=== PATIENT | male | born 1965 | race African-American/Black ===

== ENCOUNTER 2017-06-17 00:16 | Emergency (ER) | payer BC ==
[2017-06-17 01:09] LABS: #Eosinphils 0.1 thou/uL (0.0-0.7); #Lymphocytes 1.8 thou/uL (1.20-3.40); #Monocytes 0.3 thou/uL (0.11-0.59); #Neutrophils 1.7 thou/uL (1.40-6.50); %Basophils 0.7 % (0.0-1.0); %Eosinophils 2.3 % (0.0-10.0); %Lymphocytes 46.2 % (21.0-51.0); %Monocytes 6.9 % (0.0-10.0); %Neutrophils 43.9 % (42.0-75.0); Mean Corpuscular HGB CONC 35.1 g/dL (32.0-36.0); Mean Corpuscular Hemoglobin 29.3 pg (27.0-31.0); Mean Corpuscular Volume 83.3 fl (80.0-94.0); Mean Platelet Volume 6.7 fL (7.4-10.4); Platelet Count 249 thou/uL (130-400); RBC Distribution Width 13.9 % (11.5-14.5); Red Blood Cell (RBC) Count 4.78 mill/uL (4.70-6.10)
[2017-06-17 01:27] LABS: ALT (SGPT) 28 U/L (8-55); AST (SGOT) 17 U/L (5-34); Albumin 3.4 g/dL (3.5-5.0); Alkaline Phosphatase 54 U/L (40-150); Anion Gap 11 mmol/L (10-20); BUN (Urea Nitrogen) 15 mg/dL (8.4-25.7); Bilirubin, Total 0.3 mg/dL (0.2-1.2); Calc. Creatinine Clearance 0 mL/min (70-130); Calcium 8.9 mg/dL (7.8-10.44); Carbon Dioxide 22 mmol/L (22-29); Chloride 107 mmol/L (98-107); Estimated GFR-MDRD 45; Globulin 2.7 g/dL (2.4-3.5); Glucose 312 mg/dL (70-105); Potassium 3.7 mmol/L (3.5-5.1); Protein, Total 6.1 g/dL (6.0-8.3); Sodium 136 mmol/L (136-145)
[2017-06-17 01:30] LABS: CKMB 4.5 ng/mL (0-6.6); Troponin I Less than 0.010 ng/mL (< 0.028)
[2017-06-17] MEDS ORDERED: Dexamethasone 10 MG/ML VIAL ONE (02:44)
[2017-06-17] MEDS ORDERED: Ketorolac Tromethamine 30 MG/ML VIAL ONE (02:44)
--- NOTE | 2017-06-17 08:14 | RAD ---
AP VIEW CHEST: HISTORY: Chest pain. FINDINGS: AP view chest is obtained on 06/17/17. Comparison study is not available. AP view chest demonstrates the lungs to be well aerated. No evidence of active intrathoracic disease is seen. No evidence of effusions, pneumonia, or pneumothorax seen. IMPRESSION: Unremarkable AP view chest. POS: [facility]
--- NOTE | 2017-07-29 | EKG ---
Test Reason : CHEST PAIN Blood Pressure : / mmHG Vent. Rate : 081 BPM Atrial Rate : 081 BPM P-R Int : 142 ms QRS Dur : 082 ms QT Int : 400 ms P-R-T Axes : 073 -02 093 degrees QTc Int : 464 ms Normal sinus rhythm Nonspecific T wave abnormality Prolonged QT Abnormal ECG Confirmed by SHAYY TRAORE ([id number]), staff editor FERNANDEZ DOMINGUEZ ([id number] on 07/28/2017 11:59:42 PM Referred By: Confirmed By:SHAYY TRAORE
== END 2017-06-17 03:35 | disposition home or self-care (01) ==
LOC: ERS 00:16
DX: M54.5 Low back pain (principal); R10.9 Unspecified abdominal pain; I10 Essential (primary) hypertension; E11.9 Type 2 diabetes mellitus without complications
CPT/HCPCS: 71045; 80053; 82553; 84484; 85025; 93005; 94760; J1100; J1885

== ENCOUNTER 2017-06-17 15:58 | Inpatient (IN) | payer BC ==
[2017-06-17 16:22] LABS: #Lymphocytes 1.3 thou/uL (1.20-3.40); #Monocytes 0.2 thou/uL (0.11-0.59); #Neutrophils 4.8 thou/uL (1.40-6.50); %Basophils 0.2 % (0.0-1.0); %Eosinophils 0.2 % (0.0-10.0); %Lymphocytes 19.7 % (21.0-51.0); %Monocytes 3.7 % (0.0-10.0); %Neutrophils 76.2 % (42.0-75.0); Hemoglobin 13.8 g/dL (14.0-18.0); Mean Corpuscular HGB CONC 35.6 g/dL (32.0-36.0); Mean Corpuscular Hemoglobin 29.4 pg (27.0-31.0); Mean Corpuscular Volume 82.4 fl (80.0-94.0); Mean Platelet Volume 6.6 fL (7.4-10.4); Platelet Count 262 thou/uL (130-400); RBC Distribution Width 13.6 % (11.5-14.5); Red Blood Cell (RBC) Count 4.71 mill/uL (4.70-6.10); White Blood Cell (WBC) Count 6.3 thou/uL (4.8-10.8)
[2017-06-17] MEDS ORDERED: Lorazepam 2 MG/ML VIAL ONE (16:27)
[2017-06-17] MEDS ORDERED: Insulin Regular 300 UNITS/3 ML VIAL ONE (16:35)
[2017-06-17] MEDS ORDERED: Insulin Regular 100 units/100 ml in NS IVPB ONE (16:45)
[2017-06-17 16:48] LABS: ALT (SGPT) 31 U/L (8-55); AST (SGOT) 19 U/L (5-34); Albumin 3.6 g/dL (3.5-5.0); Alkaline Phosphatase 59 U/L (40-150); Anion Gap 21 mmol/L (10-20); BUN (Urea Nitrogen) 26 mg/dL (8.4-25.7); Bilirubin, Total 0.2 mg/dL (0.2-1.2); Calc. Creatinine Clearance 0 mL/min (70-130); Calcium 8.7 mg/dL (7.8-10.44); Carbon Dioxide 15 mmol/L (22-29); Chloride 101 mmol/L (98-107); Estimated GFR-MDRD 34; Globulin 2.9 g/dL (2.4-3.5); Glucose 676 mg/dL (70-105); Potassium 4.3 mmol/L (3.5-5.1); Protein, Total 6.5 g/dL (6.0-8.3); Sodium 133 mmol/L (136-145)
[2017-06-17 18:00] LABS: Bilirubin Negative (Negative); Blood, Urine Small (Negative); Clarity CLEAR (Clear); Glucose, Urine (Dipstick) >=1000 mg/dL (Negative); Leukocyte Negative (Negative); Nitrite Negative (Negative); Protein, Urine (Dipstick) 300 mg/dL (Neg-Trace); Urobilinogen 0.2 mg/dL (0.2-1.0)
[2017-06-17 18:01] LABS: Bacteria/HPF None Seen HPF (None Seen); Hyaline Casts/LPF 0-3 HYALINE CAST LPF (0-3 Hyaline); Pathc Cast-AUWi Flag 0.58 (0-2.49); RBC/HPF 0-3 HPF (0-3); Squamous Epithelial 0-3 HPF (0-3); WBC/HPF 0-3 HPF (0-3)
[2017-06-17 18:08] LABS: Amphetamine Not Detected (NotDetected); Barbiturates Screen Not Detected (NotDetected); Benzodiazepine Screen Not Detected (NotDetected); Cocaine Metabolite Screen Not Detected (NotDetected); Medtox Control Line Valid? VALID (VALID); Medtox Reader # READER 1; Methadone Not Detected (NotDetected); Methamphetamine Not Detected (NotDetected); Opiate Screen Not Detected (NotDetected); Oxycodone Screen Not Detected (NotDetected); Phencyclidine (PCP) Not Detected (NotDetected); THC/Cannabinoid Screen Not Detected (NotDetected); Tricyclic Screen Not Detected (NotDetected)
--- NOTE | 2017-06-17 18:09 | CT ---
CT BRAIN WITHOUT CONTRAST: Comparison: None. History: New onset seizures. Technique: Multiple contiguous axial images were obtained in a CT of the brain without contrast. FINDINGS: There are scattered hypodensities in the subcortical and periventricular white matter, likely seconda ry to small vessel ischemic disease. No large confluent infarction is seen. There is no evidence of h ydrocephalus, intracranial hemorrhage, or extraaxial fluid collection. The calvarium and overlying soft tissues are unremarkable. The visualized paranasal sinuses and masto id air cells are well aerated. IMPRESSION: No evidence of acute intracranial abnormality. POS: [facility]
[2017-06-17 18:23] VITALS: BMI 28.1
[2017-06-17] MEDS ORDERED: Lorazepam 2 MG/ML VIAL SLOW IVP PRN ×2 (18:27→18:29)
[2017-06-17] MEDS ORDERED: CCU Electrolyte Replacement 1 EACH IVPB ONE (18:29)
[2017-06-17] MEDS ORDERED: Ondansetron ODT 4 MG TAB SL PRN (18:29)
[2017-06-17] MEDS ORDERED: Sodium Chloride 0.9% 1,000 ML IV SCH (18:29)
[2017-06-17] MEDS ORDERED: Acetaminophen 325 MG TAB PO PRN (18:29)
[2017-06-17] MEDS ORDERED: Sodium Chloride 0.9% 1,000 ML IV PRN ×4 (18:29)
[2017-06-17] MEDS ORDERED: NS 0.9% w/ 20 MEQ KCL 1,000 ML IV PRN (18:29)
[2017-06-17] MEDS ORDERED: Dextrose 5 %-0.45 % NaCl 1,000 ML IV PRN (18:29)
[2017-06-17] MEDS ORDERED: D5 1/2 NS w/20 mEq KCL 1,000 ML IV PRN (18:29)
[2017-06-17] MEDS ORDERED: Ondansetron HCl/PF 4 MG/2 ML Vial IVP PRN (18:29)
[2017-06-17] MEDS ORDERED: Magnesium Oxide 400 MG TAB PO PRN ×2 (18:37)
[2017-06-17] MEDS ORDERED: Potassium Chloride 20 MEQ TAB PO PRN (18:37)
[2017-06-17] MEDS ORDERED: Magnesium 2 GM/NS 0.9% 100 ML 2 GM in Premix Bag 1 BAG IVPB PRN (18:37)
[2017-06-17] MEDS ORDERED: Potassium Phosphate 9 MMOL in Sodium Chloride 0.9% 100 ML IVPB PRN (18:37)
[2017-06-17] MEDS ORDERED: CCU ELECTROLYTE REPLACEMENT PROTOCOL FS PRN (18:37)
[2017-06-17] MEDS ORDERED: Potassium Phosphate 15 MMOL in Sodium Chloride 0.9% 250 ML 250 ML IV PRN (18:37)
[2017-06-17] MEDS ORDERED: Potassium Phosphate 12 MMOL in Sodium Chloride 0.9% 250 ML 250 ML IV PRN (18:37)
[2017-06-17] MEDS ORDERED: Potassium Chloride 40 MEQ in Premix Bag 1 BAG IVPB PRN (18:37)
[2017-06-17] MEDS ORDERED: Potassium Chloride 40 MEQ in Sodium Chloride 0.9% 250 ML 250 ML IVPB PRN (18:37)
[2017-06-17 18:57] LABS: Hemoglobin A1c 10.2 % (4.0-6.0)
[2017-06-17 19:11] LABS: Anion Gap 17 mmol/L (10-20); BUN (Urea Nitrogen) 25 mg/dL (8.4-25.7); Calc. Creatinine Clearance 49 mL/min (70-130); Calcium 8.8 mg/dL (7.8-10.44); Carbon Dioxide 17 mmol/L (22-29); Chloride 110 mmol/L (98-107); Estimated GFR-MDRD 41; Glucose 224 mg/dL (70-105); Potassium 3.8 mmol/L (3.5-5.1); Sodium 140 mmol/L (136-145)
[2017-06-17 19:24] LABS: Troponin I Less than 0.010 ng/mL (< 0.028)
[2017-06-17 19:26] LABS: CKMB 6.7 ng/mL (0-6.6)
[2017-06-17] MEDS: Famotidine 20 MG TAB PO SCH (19:39)
[2017-06-17] MEDS: Docusate 100 MG CAP PO SCH (19:39)
[2017-06-17] MEDS: Heparin 5,000 UNITS/ML VIAL SC SCH (19:39)
[2017-06-17] MEDS: NS 0.9% w/ 20 MEQ KCL 1,000 ML IV PRN ×2 (19:40→23:44)
--- NOTE | 2017-06-17 20:23 | HP ---
PRIMARY CARE PHYSICIAN: [facility]. HISTORY OF PRESENT ILLNESS: The patient is a 51-year-old male with past medical history of diabetes and hypertension, who presented to the hospital initially yesterday for lower back pain and possibly some right-sided tingling. Patient was seen in the ER, was prescribed tramadol and also was given so me Decadron IV in the ER and was discharged home. The patient stated that since March, he has been having complaints of lower back pain, which he has been working with his PCP and was on Tylenol with codeine, which he ran out of it for about a week. The patient stated that today he started having s ome shakiness to the right leg followed by a seizure. The patient's was at the bedside witness the seizure, he was foaming at the mouth. The patient's called 911 and transported the patient here to the ER. In the ER, the patient had an another second episodes of seizure, the patient again started having shakiness of his right leg followed by a grand mal seizure with eyes rolled back and s haking. Patient was given some Ativan according to the ER doctor, it lasted about 2 minutes and the patient was given IV Ativan and the patient was then postictal. The patient also was found to have a blood sugar in the 600s. Upon my examination, the patient was much more awake and stated that he di d not take his Lantus last night. Patient normally takes long-acting and short-acting. The patient states that in the past couple months, he has been admitted in [facility] for blood sugars in th e 300s. Patient currently denies any chest pain, nausea, vomiting, abdominal pain; however, he does say that he has been constipated. Denies any diarrhea. PAST MEDICAL HISTORY: History of diabetes and hypertension. PAST SURGICAL HISTORY: He has had multiple orthopedic surgeries including carpal tunnel surgery, pat ellar bilaterally surgery, right hand surgery, and anal fissure repair. ALLERGIES: He has no known drug allergies. SOCIAL HISTORY: The patient denies any alcohol, drug use or smoking. FAMILY HISTORY: Mother has breast cancer and had diabetes. Father had diabetes and had a stroke. REVIEW OF SYSTEMS: All negative except for the ones mentioned in the HPI. MEDICATIONS: He takes losartan 25 mg daily, atorvastatin 80 mg daily, Norvasc 5 mg daily, and terbin afine 250 mg daily. PHYSICAL EXAMINATION: VITAL SIGNS: 98.1. Pulse of 91, 100% on room air, 16, 144/86. GENERAL: He is awake, alert, oriented x3. CARDIOVASCULAR: S1, S2 per present. No murmurs, rubs or gallops. LUNGS: Clear to auscultation, rhonchi, or wheezes noted. ABDOMEN: Soft, nontender. Bowel sounds are present x2. EXTREMITIES: No edema. Pedal pulses are present x2. NEURO: Neuro graham, he is able to move bilateral upper extremities and bilateral lower extremities. MUSCULOSKELETAL: No pain upon palpation of the spine or the paraspinal area. LABORATORY DATA: Following white count of 6.3, hemoglobin of 13.8, hematocrit of 38.8, platelets of 262. Chemistry: Sodium of 133, potassium of 4.3, anion gap of 21, bicarbonate of 15, BUN of 26, cre atinine of 2.45. His creatinine prior to that was 1.62. Sugar of 675 initially. Prolactin was 14.8 1. LFTs were normal. The patient had a CT head, which indicated only chronic, no acute intracerebral abnormalities, it has had scattered hypodense and subcortical periventricular white matter changes. Chest x-ray was done, which did not indicate any acute processes. EKG upon my review, I have no other one for comparison looks nonspecific T-wave changes and inverted P-wave in V1, possible secondary to left atrial enlarge ment. ASSESSMENT AND PLAN: This patient is a very pleasant 51-year-old male initially presents to the [facility] for seizure. 1. New onset seizure. The patient states that he has never had this before. Unknown etiology of th e seizure. The patient states that he does not drink. Electrolytes did not appear to be very abnorm al; however, his blood sugar was significantly elevated, but the hydroxybutyric acid was normal in th is patient. It was 0.12. UDS was also normal. The patient started on insulin drip. We will do a d iabetic ketoacidosis protocol until the gap has closed and then once the gap has closed, we will holt sition into his Lantus and go from there. For his seizures, we will start patient on Keppra 500 mg b .i.d. We will consult Neurology. We will also do an EEG. The patient was advised that he will not be able to drive. 2. Diabetic ketoacidosis type 2. The patient's hydroxybutyric acid has been normal, but he does hav e a metabolic acidosis and elevated anion gap. We will treat him like diabetic ketoacidosis. We mani l start the patient on insulin drip. Once the gap has closed, we will transition that to his Lantus and also feed him after that. We will continue to monitor. We will check a hemoglobin A1c. 3. Patient did complain of some chest pain with some mild changes in the EKG. We will check an echo cardiogram. We will also check troponins and trend it, continue to monitor. 4. Deep venous thrombosis prophylaxis. We will put patient on subcu heparin.
[2017-06-17 22:57] LABS: Anion Gap 12 mmol/L (10-20); BUN (Urea Nitrogen) 26 mg/dL (8.4-25.7); Calc. Creatinine Clearance 58 mL/min (70-130); Calcium 7.9 mg/dL (7.8-10.44); Carbon Dioxide 19 mmol/L (22-29); Chloride 112 mmol/L (98-107); Estimated GFR-MDRD 49; Glucose 290 mg/dL (70-105); Sodium 139 mmol/L (136-145)
[2017-06-18 02:31] LABS: #Basophils 0.1 thou/uL (0.0-0.2); #Lymphocytes 2.1 thou/uL (1.20-3.40); #Monocytes 0.6 thou/uL (0.11-0.59); #Neutrophils 7.8 thou/uL (1.40-6.50); %Basophils 0.7 % (0.0-1.0); %Eosinophils 0.3 % (0.0-10.0); %Lymphocytes 19.8 % (21.0-51.0); %Monocytes 5.7 % (0.0-10.0); %Neutrophils 73.6 % (42.0-75.0); Hemoglobin 11.4 g/dL (14.0-18.0); Mean Corpuscular HGB CONC 36.2 g/dL (32.0-36.0); Mean Corpuscular Hemoglobin 29.6 pg (27.0-31.0); Mean Corpuscular Volume 81.8 fl (80.0-94.0); Mean Platelet Volume 6.4 fL (7.4-10.4); Platelet Count 215 thou/uL (130-400); RBC Distribution Width 14.1 % (11.5-14.5); Red Blood Cell (RBC) Count 3.85 mill/uL (4.70-6.10); White Blood Cell (WBC) Count 10.6 thou/uL (4.8-10.8)
[2017-06-18 02:51] LABS: Anion Gap 9 mmol/L (10-20); BUN (Urea Nitrogen) 25 mg/dL (8.4-25.7); Calc. Creatinine Clearance 65 mL/min (70-130); Calcium 8.1 mg/dL (7.8-10.44); Carbon Dioxide 21 mmol/L (22-29); Chloride 115 mmol/L (98-107); Estimated GFR-MDRD 56; Glucose 158 mg/dL (70-105); Potassium 3.7 mmol/L (3.5-5.1); Sodium 141 mmol/L (136-145)
[2017-06-18 03:18] LABS: ALT (SGPT) 25 U/L (8-55); AST (SGOT) 17 U/L (5-34); Albumin 2.8 g/dL (3.5-5.0); Alkaline Phosphatase 47 U/L (40-150); Anion Gap 9 mmol/L (10-20); BUN (Urea Nitrogen) 24 mg/dL (8.4-25.7); Bilirubin, Total Less than 0.2 mg/dL (0.2-1.2); Calc. Creatinine Clearance 65 mL/min (70-130); Calcium 8.1 mg/dL (7.8-10.44); Carbon Dioxide 21 mmol/L (22-29); Chloride 114 mmol/L (98-107); Estimated GFR-MDRD 56; Glucose 161 mg/dL (70-105); Potassium 3.7 mmol/L (3.5-5.1); Protein, Total 4.8 g/dL (6.0-8.3); Sodium 140 mmol/L (136-145)
[2017-06-18] MEDS ORDERED: Dextrose 5% in Water 1,000 ML IV PRN (03:22)
[2017-06-18] MEDS ORDERED: Dextrose 50% Abboject 50 ML SYRINGE IVP PRN (03:22)
[2017-06-18] MEDS: NS 0.9% w/ 20 MEQ KCL 1,000 ML IV PRN (03:48)
[2017-06-18] MEDS: HumaLOG 300 UNITS/3 ML VIAL SC SCH ×3 (08:15→18:24)
[2017-06-18] MEDS: Heparin 5,000 UNITS/ML VIAL SC SCH ×3 (08:16→20:31)
[2017-06-18] MEDS: Docusate 100 MG CAP PO SCH ×2 (08:17→20:30)
[2017-06-18] MEDS ORDERED: Insulin Detemir 100 UNITS/ML 20 UNITS in Pre-Filled Syringe 1 EACH SC SCH (09:00)
--- NOTE | 2017-06-18 10:26 | CON ---
DATE OF CONSULTATION: 06/18/2017 This encompassed 70 minutes time, of that time, greater than 50% of the time was spent with the patie nt and or on the patient's floor. REASON FOR CONSULTATION: IMCU placement. HISTORY OF PRESENT ILLNESS: The patient is a pleasant 51-year-old male who was hospitalized on 06/17 after experiencing a witnessed generalized seizure at home. The patient says his leg started t o shake, the next thing he remembers he was in the ambulance on the way to the hospital. There he santiago d a second seizure in the ER. He was given some Ativan and the seizure resolved. He was noted to santiago ve a blood sugar above the 600s. He was treated as if he had DKA. His blood sugar is now down to mo re reasonable levels and he is off the insulin drip. PAST MEDICAL HISTORY: 1. Diabetes mellitus. 2. Hypertension. 3. Hyperlipidemia. 4. Back pain. PAST SURGICAL HISTORY: Multiple surgeries on his hand, knee. He has also had an anal fistula repair . ALLERGIES: None. SOCIAL HISTORY: Nonsmoker, does not consume alcohol. 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 FAMILY MEDICAL HISTORY: Remarkable for breast cancer, diabetes, and stroke. REVIEW OF SYSTEMS: Twelve point review of systems otherwise, negative. MEDICATIONS: Losartan, atorvastatin, Norvasc, terfenadine. He is also on insulin at home. PHYSICAL EXAMINATION: VITAL SIGNS: Temperature 98.3, pulse 91, respirations 22, O2 sat 100%. GENERAL: He is awake, alert, pleasant, in no distress. HEENT: Unremarkable. NECK: Without adenopathy, JVD, or bruits. LUNGS: Clear without wheezing or rhonchi. CARDIAC: S1, S2 regular, without murmur or gallop. ABDOMEN: Soft, nontender, nondistended. EXTREMITIES: No clubbing, cyanosis, or edema. LABORATORY DATA: White blood cell count 10.6, hematocrit 31.5, platelet count 215. Sodium 141, pota ssium 3.7, chloride 115, CO2 21, BUN 25, creatinine 1.6, glucose 158. Urine drug screen was negative . ASSESSMENT: 1. Hyperglycemia secondary to diabetes 2. Possible seizure. PLAN: He can be transferred out to the stroke floor for further evaluation of a seizure disorder. Dimitris gibbs has no pulmonary needs identified.
--- NOTE | 2017-06-18 14:54 | PQF ---
DATE: 06-18-17 ATTN: DR. CARMELINA LARSON Please exercise your independent, professional judgment in responding to the clarification form. Clinical indicators are provided on the bottom of this form for your review Please check appropriate box(s): [ x ] Acute Renal Failure (ARF) / Acute Kidney Injury (MARJAN) [ ] Insignificant Lab Values [ ] Other diagnosis [ ] Unable to determine In addition, please specify: Present on Admission (POA): [ x ] Yes [ ] No [ ] Unable to determine National Kidney Foundation Guidelines for CKD Staging Stage I Kidney damage with normal or increased GFR GFR > 90 Stage II Kidney damage with mildly decreased GFR GFR 60-89 Stage III Kidney damage with moderately decreased GFR GFR 30-59 Stage IV Kidney damage with severely decreased GFR GFR 16-29 Stage V Kidney failure GFR<15 ESRD End Stage Renal Disease On dialysis Acute Renal Failure/Acute Kidney Failure defined as: Increases in SCr by (>) 0.3 mg/dl within 48 hours OR- Increases in SCr by (>) 1.5 times baseline, known or presumed to have occurred within the prior 7 days OR- Urine volume < 0.5 ml/kg/hour for 6 hours (KDIGO supplement 2012 for RIFLE/LELAND criteria) For continuity of documentation, please document condition throughout progress notes and discharge summary. Thank You. CLINICAL INDICATORS - SIGNS / SYMPTOMS / LABS GFR: 06-17-17: 34 41 49 06-18-17: 56 56 CREATININE: 06-17-17: 2.45 2.09 1.76 06-18-17: 1.58 1.58 BUN: 06-17-17: 26 25 26 06-18-17: 24 25 H&P: METABOLIC ACIDOSIS RISK FACTORS: H&P: HX OF DM AND HTN, SINCE MARCH, HE HAS BEEN HAVING COMPLAINTS OF LOWER BACK PAIN, WHICH HE HAD BEEN WORKING WITH PCP AND WAS ON TYLENOL WITH CODEINE, WHICH HE RAN OUT OF IT FOR ABOUT A WEEK. TREATMENTS: (ER) IVF, (MAR ) IVF WITH KCL (This form is maintained as a part of the permanent medical record) 2014 [employer] All Rights Reserved CIRA [email or web address] Office: [phone] [facility]
--- NOTE | 2017-06-18 15:22 | PDOC.PN ---
- Subjective Encounter Start Date: 06/18/17 Encounter Start Time: 13:00 Subjective: pt up in bed feels well - Objective Resuscitation Status: Resuscitation Status FULL:Full Resuscitation Vital Signs & Weight: Vital Signs (12 hours) Temp Pulse Resp BP BP Pulse Ox 06/18/17 12:10 98.6 F 83 16 175/104 H 99 06/18/17 11:05 98.9 F 84 20 148/88 H 100 06/18/17 08:00 98.8 F 91 22 H 100 06/18/17 07:28 98.8 F 91 22 H 139/89 100 06/18/17 04:00 78 18 156/85 H 100 Weight Weight 185 lb 3.2 oz I&O: 06/17/17 06/18/17 06/19/17 06:59 06:59 06:59 Intake Total 3470 1490 Output Total 1625 1600 Balance 1845 -110 Result Diagrams: 06/18/17 02:22 06/18/17 02:22 Additional Labs: Accuchecks 06/18/17 06/18/17 06/18/17 10:58 05:48 03:06 POC Glucose 249 H 127 H 133 H 06/18/17 06/18/17 06/17/17 02:03 00:53 23:48 POC Glucose 155 H 222 H 271 H 06/17/17 06/17/17 06/17/17 20:42 19:06 18:22 POC Glucose 179 H 163 H 271 H 06/17/17 17:47 POC Glucose 345 H Phys Exam - Physical Examination HEENT: PERRLA, moist MMs, sclera anicteric, TM's clear, oral pharynx no lesions , 2+ tonsils Neck: no nodes, no JVD, supple, full ROM Respiratory: no wheezing, no rales, no rhonchi, wheezing present, clear to auscultation bilateral Cardiovascular: RRR, no significant murmur, no rub, gallop, irregular Gastrointestinal: soft, non-tender, no distention, positive bowel sounds Musculoskeletal: no edema, pulses present, edema present Dx/Plan - Plan 1) acute seizure 2) dka resolved 3) htn 4) kailey on ckd plan * pt on kera, neurology to see pt. eeg ordered, echo ordered since pt has been complaining of chest pain. will continue pt's home meds. creatinine has improved. Review of Systems - Review of Systems Eyes: negative: Pain, Vision Change, Conjunctivae Inflammation, Eyelid Inflammation, Redness, Other ENT: negative: Ear Pain, Ear Discharge, Nose Pain, Nose Discharge, Nose Congestion, Mouth Pain, Mouth Swelling, Throat Pain, Throat Swelling, Other Respiratory: negative: Cough, Dry, Shortness of Breath, Hemoptysis, SOB with Excertion, Pleuritic Pain, Sputum, Wheezing Cardiovascular: negative: chest pain, palpitations, orthopnea, paroxysmal nocturnal dyspnea, edema, light headedness, other Gastrointestinal: negative: Nausea, Vomiting, Abdominal Pain, Diarrhea, Constipation, Melena, Hematochezia, Other Genitourinary: negative: Dysuria, Frequency, Incontinence, Hematuria, Retention , Other Musculoskeletal: negative: Neck Pain, Shoulder Pain, Arm Pain, Back Pain, Hand Pain, Leg Pain, Foot Pain, Other - Medications/Allergies Allergies/Adverse Reactions: Allergies Allergy/AdvReac Type Severity Reaction Status Date / Time No Known Allergies Allergy Verified 06/17/17 19:31 Medications: Current Medications Acetaminophen (Tylenol) 650 mg PO Q4H PRN PRN Reason: Headache/Fever or Pain Dextrose/Water (Dextrose 50%) 25 gm IVP PRN PRN PRN Reason: HYPOGLYCEMIA PROTOCOL Docusate Sodium (Colace) 100 mg PO BID REPLACED BY [facility] Last Admin: 06/18/17 08:17 Dose: 100 mg Famotidine (Pepcid) 20 mg PO QPM REPLACED BY [facility] Last Admin: 06/17/17 19:39 Dose: 20 mg Glucagon (Glucagon) 1 mg IM PRN PRN PRN Reason: HYPOGLYCEMIA PROTOCOL Heparin Sodium (Porcine) (Heparin) 5,000 units SC TID REPLACED BY [facility] Last Admin: 06/18/17 08:16 Dose: 5,000 units Levetiracetam 500 mg/ Device 100 mls @ 200 mls/hr IVPB BID REPLACED BY [facility] Last Admin: 06/18/17 08:17 Dose: 100 mls Potassium Chloride 40 meq/ (Sodium Chloride) 270 mls @ 135 mls/hr IVPB ASDIR PRN PRN Reason: FOR SERUM K+ 2.5 - 3.5 Potassium Chloride 40 meq/ (Device) 100 mls @ 50 mls/hr IVPB ASDIR PRN PRN Reason: FOR SERUM K+ 2.5 - 3.5 Magnesium Sulfate 1 gm/ Sodium (Chloride) 102 mls @ 102 mls/hr IV PRN PRN PRN Reason: MAG LEVEL 1.4 - 2.0 Magnesium Sulfate 2 gm/ Device 100 mls @ 100 mls/hr IVPB ASDIR PRN PRN Reason: MAGNESIUM < 1.4 Potassium Phosphate 9 mmol/ (Sodium Chloride) 103 mls @ 25.75 mls/hr IVPB ASDIR PRN PRN Reason: Phosphate 1.0-1.8 Potassium Phosphate 12 mmol/ (Sodium Chloride) 254 mls @ 63.5 mls/hr IV ASDIR PRN PRN Reason: Serum phosphate 0.5-0.9 Potassium Phosphate 15 mmol/ (Sodium Chloride) 255 mls @ 63.75 mls/hr IV ASDIR PRN PRN Reason: Serum Phos < 0.5 Dextrose/Water (D5w) 1,000 mls @ 0 mls/hr IV INF PRN; As Directed PRN Reason: HYPOGLYCEMIA PROTOCOL Insulin Human Lispro (Humalog) 8 units SC [facility] Last Admin: 06/18/17 11:04 Dose: 8 unit Lorazepam (Ativan) 2 mg SLOW IVP Q15MIN PRN PRN Reason: Seizures Magnesium Oxide (Magnesium Oxide) 400 mg PO BIDPRN PRN PRN Reason: FOR SERUM MAG 1.4 - 2.0 Magnesium Oxide (Magnesium Oxide) 800 mg PO PRN PRN PRN Reason: FOR SERUM MAG < 1.4 Miscellaneous Medication (Phos-Nak) 1 pkt PO TIDPRN PRN PRN Reason: FOR PHOS LEVEL 1.0 - 1.8 Miscellaneous Medication (Phos-Nak) 2 pkt PO TIDPRN PRN PRN Reason: FOR PHOS LEVEL 0.5 - 1.0 Ccu Electrolyte (Replacement Protocol) 0 each FS PRN PRN PRN Reason: FOR ELECTROLYTE REPLACEMENT Potassium Chloride (K-Dur) 40 meq PO ASDIR PRN PRN Reason: FOR SERUM K+ 2.5 - 3.5 Potassium Chloride (Klor-Con) 40 meq PER TUBE ASDIR PRN PRN Reason: FOR SERUM K+ 2.5-3.5
[2017-06-18] MEDS ORDERED: Lidocaine 5% Patch TD SCH (15:35)
[2017-06-18] MEDS ORDERED: Methocarbamol 500 MG TAB PO PRN (18:27)
[2017-06-18] MEDS ORDERED: oxyCODONE 5 MG TAB PO PRN (18:27)
--- NOTE | 2017-06-18 18:34 | CON ---
NEUROLOGIC CONSULTATION NOTE DATE OF CONSULTATION: 06/18/2017 CONSULTING PHYSICIAN: Hospitalist Service. IMPRESSION: 1. New onset focal seizure with generalization. 2. Diabetes. PLAN: 1. MRI of the brain with contrast. 2. Keppra 500 mg twice a day. 3. Office followup. HISTORY OF PRESENT ILLNESS: Mr. Man is a 51-year-old black gentleman who presented with acute on set of a seizure. He noted that his right leg started jerking uncontrollably. Prior to losing consc iousness, he awoke at the hospital in the ambulance. He had a second event while in the emergency ro om. He was given some Ativan and has not had any further events. His CT scan of the brain showed so me small vessel ischemic changes, but no obvious focal lesions. Tox screen was negative. His echoca rdiogram showed a normal ejection fraction. He has been afebrile since admission. PAST MEDICAL HISTORY: Diabetes and mild renal insufficiency. SOCIAL HISTORY: Unremarkable. FAMILY HISTORY: Noncontributory. REVIEW OF SYSTEMS: New onset of lower back pain prior to this event. PHYSICAL EXAMINATION: GENERAL: He is a healthy appearing middle-aged man in no distress. VITAL SIGNS: Stable. He has been afebrile. HEENT: Unremarkable. NECK: Supple. EXTREMITIES: No cyanosis. NEUROLOGIC: He is alert and appropriate. His speech is fluent and clear. Cranial nerves II-XII are intact. Motor strength testing did not show any obvious focal deficits. Plantar response was upgoi ng on the right and downgoing on the left. IMAGING DATA: EKG shows sinus tachycardia. SUMMARY: A middle aged man with a new onset of focal seizures. Further evaluation for underlying st ructural lesion needs to be undertaken. I would be happy to follow up with him as an outpatient.
[2017-06-18] MEDS: Acetaminophen 325 MG TAB PO PRN (18:42)
[2017-06-18] MEDS: Famotidine 20 MG TAB PO SCH (20:30)
[2017-06-18] MEDS: levETIRAcetam 500 MG TAB PO SCH (20:30)
[2017-06-19] MEDS: Lidocaine Patch Removal 1 EACH TOP SCH ×2 (00:17→22:39)
[2017-06-19 06:40] LABS: Calcium 8.6 mg/dL (7.8-10.44)
[2017-06-19 06:48] LABS: Anion Gap 11 mmol/L (10-20); BUN (Urea Nitrogen) 14 mg/dL (8.4-25.7); Calc. Creatinine Clearance 73 mL/min (70-130); Carbon Dioxide 24 mmol/L (22-29); Chloride 111 mmol/L (98-107); Estimated GFR-MDRD 64; Glucose 166 mg/dL (70-105); Sodium 142 mmol/L (136-145)
[2017-06-19] MEDS: HumaLOG 300 UNITS/3 ML VIAL SC SCH ×3 (06:58→17:33)
[2017-06-19] MEDS ORDERED: Lidocaine 5% Patch TD SCH (09:00)
[2017-06-19] MEDS: Heparin 5,000 UNITS/ML VIAL SC SCH ×3 (09:33→21:26)
[2017-06-19] MEDS: levETIRAcetam 500 MG TAB PO SCH ×2 (09:34→21:26)
[2017-06-19] MEDS: Docusate 100 MG CAP PO SCH ×2 (09:34→21:26)
[2017-06-19] MEDS: hydrALAZINE 20 MG/ML VIAL SLOW IVP PRN ×2 (11:15→16:07)
[2017-06-19] MEDS ORDERED: Losartan 25 MG TAB PO SCH ×2 (12:45→18:45)
[2017-06-19] MEDS ORDERED: Amlodipine 5 MG TAB PO SCH ×2 (12:45→18:45)
--- NOTE | 2017-06-19 16:40 | PDOC.PN ---
- Subjective Encounter Start Date: 06/19/17 Encounter Start Time: 11:00 Patient is seen today, alert and oriented. He is puzzled about the reasons for seizures, waiting on MRI and further recommedations from neurology. - Objective Resuscitation Status: Resuscitation Status FULL:Full Resuscitation MAR Reviewed: Yes Vital Signs & Weight: Vital Signs (12 hours) Temp Pulse Resp BP BP Pulse Ox 06/19/17 16:07 90 204/114 H 06/19/17 15:48 98.5 F 90 16 204/114 H 98 06/19/17 13:19 86 194/117 H 06/19/17 11:50 98.6 F 90 18 159/104 H 98 06/19/17 11:15 93 175/114 H 06/19/17 08:35 98.7 F 86 18 100 06/19/17 07:50 98.7 F 89 18 199/113 H 100 Weight Weight 185 lb 3.2 oz I&O: 06/18/17 06/19/17 06/20/17 06:59 06:59 06:59 Intake Total 3470 1989 Output Total 1625 2650 Balance 1845 -660 Result Diagrams: 06/18/17 02:22 06/19/17 05:19 Additional Labs: Accuchecks 06/19/17 06/19/17 06/18/17 10:56 06:58 20:31 POC Glucose 178 H 189 H 136 H 06/18/17 16:43 POC Glucose 79 Radiology Reviewed by me: Yes Phys Exam - Physical Examination HEENT: PERRLA, moist MMs Neck: no nodes Respiratory: no wheezing, no rales Cardiovascular: RRR, no significant murmur Gastrointestinal: soft, non-tender Musculoskeletal: no edema, pulses present Neurological: non-focal, normal sensation Lymphatic: no nodes Psychiatric: normal affect, A&O x 3 Dx/Plan (1) Seizures Code(s): R56.9 - UNSPECIFIED CONVULSIONS Status: Acute Comment: EEG normal, pt on Keppra, Will continue to monitor waiting on MRI. (2) Acute encephalopathy Code(s): G93.40 - ENCEPHALOPATHY, UNSPECIFIED Status: Acute Comment: Improving after seizures, No more seizures. Neurology consulted. (3) Hyperglycemia due to type 2 diabetes mellitus Code(s): E11.65 - TYPE 2 DIABETES MELLITUS WITH HYPERGLYCEMIA Status: Acute Comment: Will continue with SSI and Home dose insulin. Keep BG 140-180. (4) Chest pain Code(s): R07.9 - CHEST PAIN, UNSPECIFIED Status: Acute Comment: Echo was normal, no wall motion, trop normal. EKG normal. - Plan cont current plan of care, plan discussed w/ family, PT/OT, social worker, respiratory therapy, incentive spirometry, DVT proph w/lovenox * . - Discharge Day Encounter end time: 11:35 Review of Systems - Review of Systems Constitutional: weakness Eyes: negative: Pain, Vision Change, Conjunctivae Inflammation, Eyelid Inflammation, Redness, Other ENT: negative: Ear Pain, Ear Discharge, Nose Pain, Nose Discharge, Nose Congestion, Mouth Pain, Mouth Swelling, Throat Pain, Throat Swelling, Other Respiratory: negative: Cough, Dry, Shortness of Breath, Hemoptysis, SOB with Excertion, Pleuritic Pain, Sputum, Wheezing Cardiovascular: negative: chest pain, palpitations, orthopnea, paroxysmal nocturnal dyspnea, edema, light headedness, other Gastrointestinal: negative: Nausea, Vomiting, Abdominal Pain, Diarrhea, Constipation, Melena, Hematochezia, Other Genitourinary: negative: Dysuria, Frequency, Incontinence, Hematuria, Retention , Other Musculoskeletal: negative: Neck Pain, Shoulder Pain, Arm Pain, Back Pain, Hand Pain, Leg Pain, Foot Pain, Other Skin: negative: Rash, Lesions, Marko, Bruising, Other - Medications/Allergies Allergies/Adverse Reactions: Allergies Allergy/AdvReac Type Severity Reaction Status Date / Time No Known Allergies Allergy Verified 06/17/17 19:31 Medications: Current Medications Acetaminophen (Tylenol) 650 mg PO Q4H PRN PRN Reason: Headache/Fever or Pain Last Admin: 06/18/17 18:42 Dose: 650 mg Amlodipine Besylate (Norvasc) 5 mg PO DAILY [facility] Dextrose/Water (Dextrose 50%) 25 gm IVP PRN PRN PRN Reason: HYPOGLYCEMIA PROTOCOL Docusate Sodium (Colace) 100 mg PO BID [facility] Last Admin: 06/19/17 09:34 Dose: 100 mg Famotidine (Pepcid) 20 mg PO QPM [facility] Last Admin: 06/18/17 20:30 Dose: 20 mg Glucagon (Glucagon) 1 mg IM PRN PRN PRN Reason: HYPOGLYCEMIA PROTOCOL Heparin Sodium (Porcine) (Heparin) 5,000 units SC TID [facility] Last Admin: 06/19/17 16:07 Dose: 5,000 units Hydralazine HCl (Apresoline) 10 mg SLOW IVP Q4H PRN PRN Reason: Blood Pressure Last Admin: 06/19/17 16:07 Dose: 10 mg Potassium Chloride 40 meq/ (Sodium Chloride) 270 mls @ 135 mls/hr IVPB ASDIR PRN PRN Reason: FOR SERUM K+ 2.5 - 3.5 Potassium Chloride 40 meq/ (Device) 100 mls @ 50 mls/hr IVPB ASDIR PRN PRN Reason: FOR SERUM K+ 2.5 - 3.5 Magnesium Sulfate 1 gm/ Sodium (Chloride) 102 mls @ 102 mls/hr IV PRN PRN PRN Reason: MAG LEVEL 1.4 - 2.0 Magnesium Sulfate 2 gm/ Device 100 mls @ 100 mls/hr IVPB ASDIR PRN PRN Reason: MAGNESIUM < 1.4 Potassium Phosphate 9 mmol/ (Sodium Chloride) 103 mls @ 25.75 mls/hr IVPB ASDIR PRN PRN Reason: Phosphate 1.0-1.8 Potassium Phosphate 12 mmol/ (Sodium Chloride) 254 mls @ 63.5 mls/hr IV ASDIR PRN PRN Reason: Serum phosphate 0.5-0.9 Potassium Phosphate 15 mmol/ (Sodium Chloride) 255 mls @ 63.75 mls/hr IV ASDIR PRN PRN Reason: Serum Phos < 0.5 Dextrose/Water (D5w) 1,000 mls @ 0 mls/hr IV INF PRN; As Directed PRN Reason: HYPOGLYCEMIA PROTOCOL Insulin Human Lispro (Humalog) 8 units SC AC [facility] Last Admin: 06/19/17 11:15 Dose: 8 unit Levetiracetam (Keppra) 500 mg PO BID [facility] Last Admin: 06/19/17 09:34 Dose: 500 mg Lorazepam (Ativan) 2 mg SLOW IVP Q15MIN PRN PRN Reason: Seizures Losartan Potassium (Cozaar) 25 mg PO DAILY [facility] Magnesium Oxide (Magnesium Oxide) 400 mg PO BIDPRN PRN PRN Reason: FOR SERUM MAG 1.4 - 2.0 Magnesium Oxide (Magnesium Oxide) 800 mg PO PRN PRN PRN Reason: FOR SERUM MAG < 1.4 Methocarbamol (Robaxin) 500 mg PO QID PRN PRN Reason: Muscle Spasm Miscellaneous Medication (Phos-Nak) 1 pkt PO TIDPRN PRN PRN Reason: FOR PHOS LEVEL 1.0 - 1.8 Miscellaneous Medication (Phos-Nak) 2 pkt PO TIDPRN PRN PRN Reason: FOR PHOS LEVEL 0.5 - 1.0 Miscellaneous Medication (Lidocaine Patch Removal) 1 each TOP 2100 [facility] Last Admin: 06/19/17 00:17 Dose: Not Given Ccu Electrolyte (Replacement Protocol) 0 each FS PRN PRN PRN Reason: FOR ELECTROLYTE REPLACEMENT Oxycodone HCl (Oxycodone Ir) 5 mg PO Q4H PRN PRN Reason: Pain Last Admin: 06/19/17 04:06 Dose: 5 mg Potassium Chloride (K-Dur) 40 meq PO ASDIR PRN PRN Reason: FOR SERUM K+ 2.5 - 3.5 Potassium Chloride (Klor-Con) 40 meq PER TUBE ASDIR PRN PRN Reason: FOR SERUM K+ 2.5-3.5 Sodium Chloride (Flush - Normal Saline) 10 ml IVF Q12HR [facility] Sodium Chloride (Flush - Normal Saline) 10 ml IVF PRN PRN PRN Reason: Saline Flush
[2017-06-19] MEDS: Labetalol HCl 100 MG/20 ML VIAL SLOW IVP PRN (21:26)
[2017-06-19] MEDS: Famotidine 20 MG TAB PO SCH (21:26)
[2017-06-20] MEDS: Labetalol HCl 100 MG/20 ML VIAL SLOW IVP PRN (05:29)
[2017-06-20 05:33] LABS: Anion Gap 11 mmol/L (10-20); BUN (Urea Nitrogen) 14 mg/dL (8.4-25.7); Calc. Creatinine Clearance 67 mL/min (70-130); Calcium 8.6 mg/dL (7.8-10.44); Carbon Dioxide 25 mmol/L (22-29); Chloride 108 mmol/L (98-107); Estimated GFR-MDRD 58; Glucose 248 mg/dL (70-105); Potassium 3.6 mmol/L (3.5-5.1); Sodium 140 mmol/L (136-145)
[2017-06-20] MEDS ORDERED: Losartan 25 MG TAB PO SCH ×2 (09:00)
[2017-06-20] MEDS ORDERED: Amlodipine 10 MG TAB PO SCH (09:00)
[2017-06-20] MEDS ORDERED: Amlodipine 5 MG TAB PO SCH (09:00)
--- NOTE | 2017-06-20 09:14 | MRI ---
BRAIN MRI WITH AND WITHOUT CONTRAST: History: New onset seizure. Comparison: None. Technique: Brain MRI is performed with and without intravenous gadolinium administration. Multisequen tial, multiplanar imaging was performed. FINDINGS: No parenchymal hemorrhage or extraaxial hematoma. No parenchymal mass, mass effect, or midline shift. Brain volume is age appropriate. Cortical xie white matter differentiation is preserved. Ventricles and sulci are patent and symmetric. Central arterial flow voids are maintained. Absent restricted diffusion. Calvarium has a normal T1 marrow signal intensity. Midline brain parenchymal structures are unremarka ble. Minimal T2 and FLAIR white matter hyperintensities, chronic vessel ischemic change. Symmetric signal intensity of the hippocampi. No MR evidence of mesial temporal sclerosis. Visualized pituitary gland, pituitary stock, and optic nerve including the optic chiasm are unremarka ble. Adequate aeration of the visualized sinuses and mastoid air cells. No pathologic enhancement of the brain parenchyma. IMPRESSION: 1. Unremarkable pre and post contrast brain MRI. No MR evidence of medial temporal sclerosis. 2. No pathologic enhancement in the brain parenchyma. 3. There is evidence of chronic small vessel ischemic change in the white matter. POS: OFF
[2017-06-20] MEDS: Heparin 5,000 UNITS/ML VIAL SC SCH ×2 (09:28→17:32)
[2017-06-20] MEDS: HumaLOG 300 UNITS/3 ML VIAL SC SCH ×3 (09:29→17:31)
[2017-06-20] MEDS: Docusate 100 MG CAP PO SCH (09:29)
[2017-06-20] MEDS: levETIRAcetam 500 MG TAB PO SCH (10:34)
[2017-06-20] MEDS ORDERED: hydrALAZINE 25 MG TAB PO SCH ×3 (11:00→15:00)
[2017-06-20 12:15] VITALS: TEMP 98.5
[2017-06-20] MEDS: Acetaminophen 325 MG TAB PO PRN ×2 (12:43→17:39)
--- NOTE | 2017-06-20 15:20 | DIS ---
DATE OF ADMISSION: 06/17/2017 DATE OF DISCHARGE: 06/20/2017 ADMITTING DIAGNOSIS: Acute seizure episode. DISCHARGE DIAGNOSIS: Idiopathic seizure. SECONDARY DIAGNOSES: 1. Uncontrolled hypertension. 2. Type 2 diabetes mellitus. 3. Hyperlipidemia. CONSULTANTS INVOLVED IN THE CARE: Dave Mari M.D. INVESTIGATIONS DONE DURING THIS ADMISSION: EEG, which was unremarkable. An MRI of the brain with co ntrast showed no evidence of any stroke or any tumors. 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 He presented to the hospital as he was having a sudden onset of seizure episode after he took his dog for a walk which was spontaneous seizure, which started with her right leg shivering and then which was followed by a total body shaking with loss of consciousne ss and he was noted to have a sugar of 600 during the time of the episode and he was brought to the E for further evaluation. He had a CT of the head initially was negative for any intracranial hemorr em and he was seen by neurologist, had no other neurologic deficits and no weakness of the legs. Dimitris gibbs had a PT and OT evaluation. He continues to have very high blood pressures, but he was on very low blood pressure medications at home and a third antihypertensive was added which was hydralazine. Bl ood pressures started trending down. Patient did not have any other symptoms with blood pressures, n o headache, no chest pain, no nausea, no vomiting, no diarrhea, no constipation. The patient was dis charged home with the new doses of the hypertensive medications, which he was and the third hypertens rosalva medication and also, patient was started on Keppra and advised to follow up with a neurologist in 1 week. PHYSICAL EXAMINATION: On date of discharge: VITAL SIGNS: Blood pressures are 160/102, respiratory rate is 91, respirations 20, saturations 99%. GENERAL: The patient is moderately built and moderately nourished. He does not appear to be in acut e distress at this time. Alert and oriented x3. HEENT: Atraumatic, normocephalic, PERRLA. Extraocular movements were intact. Oral mucosa is pink an d moist. CARDIOVASCULAR SYSTEM: S1, S2 normal. No murmurs, rubs or gallops. LUNGS: Bilateral air entry was equal. No wheezing, no crackles. ABDOMEN: Soft, nontender. No guarding or rebound tenderness. Bowel sounds normal. MUSCULOSKELETAL: No calf tenderness. No pedal edema. No joint tenderness, no joint swelling. SKIN: No cyanosis, no erythema, no rash, no pallor. CENTRAL NERVOUS SYSTEM: Cranial examination II-XII intact. No focal deficits were noted. DISCHARGE MEDICATIONS: New medications: 1. Amlodipine 10 mg p.o. daily. 2. Hydralazine 25 mg p.o. t.i.d. 3. Losartan 100 mg p.o. daily. 4. Insulin Glargine 20 units subcu at bedtime. 5. Humalog 80 units subcu daily. DISCHARGE INSTRUCTIONS: Continue activity as started, advised to follow up with primary care physici an within 1 week to recheck his blood pressures and continue to increase hydralazine. The patient is advised to follow up with the Neurology in 1 week. The patient is advised to follow a low salt diet . I spent 35 minutes in this patient on the day of discharge.
[2017-06-20 17:45] VITALS: BP 159/101
[2017-06-21] MEDS ORDERED: Losartan 25 MG TAB PO SCH (09:00)
== END 2017-06-20 18:01 | disposition home or self-care (01) | DRG 100 ==
LOC: ERS 15:58 → IMCU/EMU 17:28 → 2SE 06-18 12:04
PROVIDERS: ADMIT Internal Medicine; ATTEND Internal Medicine
DX: G40.89 Other seizures (principal); G93.40 Encephalopathy, unspecified; N17.9 Acute kidney failure, unspecified; E11.22 Type 2 diabetes mellitus with diabetic chronic kidney disease; Z79.4 Long term (current) use of insulin; E78.5 Hyperlipidemia, unspecified; E11.65 Type 2 diabetes mellitus with hyperglycemia; N18.9 Chronic kidney disease, unspecified; I12.9 Hypertensive chronic kidney disease with stage 1 through stage 4 chronic kidney disease, or unspecified chronic kidney disease
CPT/HCPCS: 36415; 36416; 70450; 70553; 71045; 80048; 80053; 80306; 81003; 81015; 82010; 82553; 83036; 84146; 84443; 84484; 85025; 93005; 93306; 94760; 95816; 95819; 96361; 96365; 96374; 96375; 96376; A4216; J0360; J1100; J1644; J1815; J1885; J1953; J2060; J7050

== ENCOUNTER 2018-06-13 06:55 | Day surgery (SDC) | payer BC ==
[2018-06-12 09:26] VITALS: BMI 31.4
[~2018-06-13 06:55] MED LIST: EPINEPHrine 0.3 MG, Dextrose 50% 3 ML in Ophthalmic Irrigation Solution 500 ML FS SCH; Fentanyl 100 MCG/2 ML VIAL ONE; Midazolam HCl 2 mg/2 ml Vial ONE
[2018-06-13] MEDS ORDERED: Cyclopentolate 1% Opth Drop 2 ML BOT ONE (07:27)
[2018-06-13] MEDS ORDERED: Phenylephrine 2.5% Ophth Soln 5 ML BOT ONE (07:27)
[2018-06-13] MEDS ORDERED: hydrALAZINE 20 MG/ML VIAL ONE (07:52)
[2018-06-13] MEDS ORDERED: Fentanyl 100 MCG/2 ML VIAL ONE (10:41)
[2018-06-13] MEDS ORDERED: Triamcinolone 40 MG/ML VIAL ONE (15:17)
[2018-06-13] MEDS ORDERED: Maxitrol 0.1% Opth Oint 3.5 GM TUBE ONE (15:17)
[2018-06-13] MEDS ORDERED: Bupivacaine 0.75% 10 ML AMP ONE (15:17)
[2018-06-13] MEDS ORDERED: Atropine Sulfate 1% Ophth Ointment 3.5 gm Tube ONE (15:17)
[2018-06-13] MEDS ORDERED: Lidocaine 4% PF 5 ML AMP ONE (15:17)
[2018-06-13] MEDS ORDERED: CEFAZOLIN 1 GM VIAL ONE (15:17)
[2018-06-13] MEDS ORDERED: Lidocaine 1% PF 5 ML VIAL ONE (15:17)
[2018-06-13] MEDS ORDERED: PROPOFOL 200 MG/20 ML VIAL ONE (15:17)
--- NOTE | 2018-06-13 18:15 | OP ---
DATE OF PROCEDURE: 06/13/2018 PREOPERATIVE DIAGNOSIS: Tractional retinal detachment, right eye. POSTOPERATIVE DIAGNOSIS: Tractional retinal detachment, right eye. PROCEDURES PERFORMED: Pars plana vitrectomy, tractional retinal detachment repair, right eye. ANESTHESIA: Local with monitored anesthesia care. DESCRIPTION OF PROCEDURE: The patient was identified in the preoperative holding area. Appropriate informed consent for the planned surgical procedure on the right eye had been obtained. The patient was transported to the operative suite, where appropriate cardiopulmonary monitoring was established. Local anesthesia was obtained using retrobulbar modified Van Lint lid block using 50:50 mixture of 4% lidocaine and 0.75% bupivacaine. The patient was prepped and draped in the usual sterile manner for ophthalmic surgery on the right eye. Lid speculum was placed in the right eye. A 25-gauge trocar was placed through the conjunctiva and sclera superotemporally, inferotemporally, and supranasally. Infusion line was placed inferotemporally. Light pipe and vitreous cutter were inserted into the eye. Core vitrectomy was performed. The posterior hyaloid face was noted to be rigidly adherent. This was elevated using membrane pick and gripping forceps, and multiple areas of proliferation attachment were identified. These were dissected away from the retina using horizontal and vertical scissors and vitrectomy cutter. All areas of traction were relieved. Panretinal photocoagulation was placed on all non-macular areas of the retina. No holes, breaks, or tears were identified. Trocars were removed. The eye was noted to retain pressure well. Retrobulbar Kenalog and subconjunctival Ancef were placed. Atropine and antibiotic ointment were placed, and the eye was patched and shielded. The patient was taken to the postoperative recovery unit in good condition, having suffered no immediate perioperative complications. The patient was instructed to keep patch and shield on, avoid lifting or bending. Followup appointment with Dr. Porter. Job ID: [id number]
== END 2018-06-13 12:14 | disposition home or self-care (01) ==
LOC: SDC 06:55
PROVIDERS: ATTEND Ophthalmology Retina Specialist
PROC: 08T43ZZ Resection of Right Vitreous, Percutaneous Approach (ICD-10-PCS; principal; 2018-06-13)
DX: E11.3531 Type 2 diabetes mellitus with proliferative diabetic retinopathy with traction retinal detachment not involving the macula, right eye (principal); Z79.4 Long term (current) use of insulin; Z79.899 Other long term (current) drug therapy; Z91.011 Allergy to milk products
CPT/HCPCS: 36416; J0171; J0360; J0690; J2001; J2250; J2704; J3010; J3301; J3490

== ENCOUNTER 2018-06-27 09:35 | Day surgery (SDC) | payer BC ==
[2018-06-26 16:41] VITALS: BMI 31.4
[~2018-06-27 09:35] MED LIST changes: -Fentanyl 100 MCG/2 ML VIAL ONE; -Midazolam HCl 2 mg/2 ml Vial ONE
[2018-06-27] MEDS ORDERED: Phenylephrine 2.5% Ophth Soln 5 ML BOT ONE (09:55)
[2018-06-27] MEDS ORDERED: Cyclopentolate 1% Opth Drop 2 ML BOT ONE (09:55)
[2018-06-27] MEDS ORDERED: Dextrose 50% Abboject 50 ML SYRINGE ONE (10:56)
[2018-06-27] MEDS ORDERED: Midazolam HCl 2 mg/2 ml Vial ONE (11:41)
[2018-06-27] MEDS ORDERED: Fentanyl 100 MCG/2 ML VIAL ONE (11:41)
[2018-06-27] MEDS ORDERED: PROPOFOL 20 ML ONE (11:41)
[2018-06-27] MEDS ORDERED: Lidocaine 2% PF 5 ML VIAL ONE (11:41)
[2018-06-27] MEDS ORDERED: Maxitrol 0.1% Opth Oint 3.5 GM TUBE ONE (13:31)
[2018-06-27] MEDS ORDERED: Lidocaine 4% PF 5 ML AMP ONE (13:31)
[2018-06-27] MEDS ORDERED: PROPOFOL 200 MG/20 ML VIAL ONE (13:31)
[2018-06-27] MEDS ORDERED: CEFAZOLIN 1 GM VIAL ONE (13:31)
[2018-06-27] MEDS ORDERED: Bupivacaine 0.75% 10 ML AMP ONE (13:31)
[2018-06-27] MEDS ORDERED: Lidocaine 1% PF 5 ML VIAL ONE ×2 (13:31)
--- NOTE | 2018-06-27 20:06 | OP ---
DATE OF PROCEDURE: 06/27/2018 PREOPERATIVE DIAGNOSIS: Tractional retinal detachment, left eye. POSTOPERATIVE DIAGNOSIS: Tractional retinal detachment, left eye. PROCEDURE PERFORMED: Pars plana vitrectomy, tractional retinal detachment repair, left eye. ANESTHESIA: Local with monitored anesthesia care. DESCRIPTION OF PROCEDURE: The patient was identified in the preoperative holding area. Appropriate informed consent for the planned surgical procedure on the left eye had been obtained. The patient was transported to the operative suite. Appropriate cardiopulmonary monitoring was established. Local anesthesia was obtained using retrobulbar modified Van Lint lid block using 50:50 mixture of 4% lidocaine and 0.75% bupivacaine. The patient was prepped and draped in usual sterile manner for ophthalmic surgery. Lid speculum was placed in the left eye. A 25-gauge trocar was placed through the conjunctiva and sclera superotemporally, inferotemporally, and supranasally. Infusion line was placed inferotemporally. Light pipe and vitreous cutter were inserted into the eye. Core vitrectomy was performed. Tractional detachment was noted with a hole along the superior temporal arcade. Posterior hyaloid face was peeled from the back of the eye, multiple pieces with multiple areas of proliferans. All areas were peeled and elevated by the end of the case. Subretinal fluid was drained, it was pretty thick, drained from underneath the retina. Panretinal photocoagulation was placed into all non-macular areas of the retina. 28% sulfur hexafluoride gas was infused into the eye. Trocars were removed. The eye was noted to retain pressure well. Retrobulbar Kenalog and subconjunctival Ancef were placed. Atropine antibiotic ointment was placed. Eye was patched and shielded. The patient was taken to postop recovery unit in good condition, having suffered no immediate perioperative complications. The patient was instructed to keep patch and shield on, avoid lifting and bending. Followup appointment with Dr. Porter. Job ID: [id number]
== END 2018-06-27 13:56 | disposition home or self-care (01) ==
LOC: SDC 09:35
PROVIDERS: ATTEND Ophthalmology Retina Specialist
PROC: 08T53ZZ Resection of Left Vitreous, Percutaneous Approach (ICD-10-PCS; principal; 2018-06-27)
DX: H33.42 Traction detachment of retina, left eye (principal)
CPT/HCPCS: 36416; 67025; J0171; J0690; J2001; J2250; J2704; J3010; J3490

== ENCOUNTER 2020-10-09 20:04 | Inpatient (IN) | payer BC ==
[2020-10-09 20:41] LABS: #Eosinphils 0.1 thou/uL (0.0-0.7); #Lymphocytes 1.1 thou/uL (1.20-3.40); #Monocytes 0.6 thou/uL (0.11-0.59); #Neutrophils 7.1 thou/uL (1.40-6.50); %Basophils 0.3 % (0.0-1.0); %Eosinophils 1.7 % (0.0-10.0); %Lymphocytes 12.6 % (21.0-51.0); %Monocytes 6.4 % (0.0-10.0); %Neutrophils 79.1 % (42.0-75.0); Hemoglobin 11.6 g/dL (14.0-18.0); Mean Corpuscular HGB CONC 34.9 g/dL (32.0-36.0); Mean Corpuscular Hemoglobin 30.9 pg (27.0-31.0); Mean Corpuscular Volume 88.8 fL (78.0-98.0); Mean Platelet Volume 7.2 fL (7.4-10.4); Platelet Count 186 thou/uL (130-400); RBC Distribution Width 14.2 % (11.5-14.5); Red Blood Cell (RBC) Count 3.76 mill/uL (4.70-6.10)
[2020-10-09 20:50] LABS: Actual Bicarbonate (HCO3v) 21 mEq/L (22-28); Analyzer IN Cardio ER; Base Excess -1.7 mEq/L (-2.0 to +3.0); Calcium, Ionized (venous) 0.95 mmol/L (1.16-1.32); Chloride (VBG) 93 mmol/L (98-106); Hemoglobin (Hb) 12.1 g/dL (13.1-17.2); Potassium (VBG) 4.19 mmol/L (3.70-5.30); Sodium 131.6 mmol/L (133-146); pH (venous) 7.46 (7.32-7.43)
[2020-10-09 20:55] LABS: ALT (SGPT) 19 U/L (8-55); AST (SGOT) 20 U/L (5-34); Albumin 4.1 g/dL (3.5-5.0); Alkaline Phosphatase 52 U/L (40-110); Anion Gap 17 mmol/L (10-20); BUN (Urea Nitrogen) 46 mg/dL (8.4-25.7); Bilirubin, Total 0.5 mg/dL (0.2-1.2); Calc. Creatinine Clearance 0 mL/min (70-130); Calcium 8.2 mg/dL (7.8-10.44); Carbon Dioxide 26 mmol/L (22-29); Chloride 91 mmol/L (98-107); Globulin 3.3 g/dL (2.4-3.5); Potassium 4.3 mmol/L (3.5-5.1); Protein, Total 7.4 g/dL (6.0-8.3); Sodium 130 mmol/L (136-145)
[2020-10-09 21:02] LABS: Glucose 571 mg/dL (70-105)
[2020-10-09] MEDS ORDERED: Acetaminophen 500 MG TAB ONE (21:15)
[2020-10-09] MEDS ORDERED: Insulin Regular 300 UNITS/3 ML VIAL ONE (21:39)
[2020-10-10] MEDS ORDERED: Sodium Chloride 0.9% 1,000 ML IV SCH (01:15)
[2020-10-10] MEDS ORDERED: Acetaminophen 325 MG TAB PO PRN ×2 (01:15→03:32)
[2020-10-10] MEDS ORDERED: Lorazepam 2 MG/ML VIAL SLOW IVP PRN (03:28)
[2020-10-10] MEDS ORDERED: Dextrose 50% Abboject 50 ML SYRINGE SLOW IVP PRN (03:31)
[2020-10-10] MEDS ORDERED: Dextrose 5% in Water 1,000 ML IV PRN (03:31)
[2020-10-10] MEDS ORDERED: HumaLOG 300 UNITS/3 ML VIAL SC PRN (03:31)
[2020-10-10] MEDS ORDERED: Ondansetron ODT 4 MG TAB PO PRN (03:32)
[2020-10-10] MEDS ORDERED: Ondansetron PF 4 MG/2 ML Vial IVP PRN (03:32)
[2020-10-10 04:19] LABS: #Eosinphils 0.1 thou/uL (0.0-0.7); #Lymphocytes 0.9 thou/uL (1.20-3.40); #Monocytes 0.4 thou/uL (0.11-0.59); #Neutrophils 9.1 thou/uL (1.40-6.50); %Basophils 0.3 % (0.0-1.0); %Eosinophils 0.6 % (0.0-10.0); %Lymphocytes 8.3 % (21.0-51.0); %Monocytes 4.2 % (0.0-10.0); %Neutrophils 86.6 % (42.0-75.0); Hemoglobin 10.9 g/dL (14.0-18.0); Mean Corpuscular HGB CONC 33.1 g/dL (32.0-36.0); Mean Corpuscular Hemoglobin 29.6 pg (27.0-31.0); Mean Corpuscular Volume 89.5 fL (78.0-98.0); Mean Platelet Volume 7.4 fL (7.4-10.4); Platelet Count 182 thou/uL (130-400); RBC Distribution Width 14.4 % (11.5-14.5); Red Blood Cell (RBC) Count 3.67 mill/uL (4.70-6.10); White Blood Cell (WBC) Count 10.5 thou/uL (4.8-10.8)
[2020-10-10 04:32] LABS: Hemoglobin A1c 8.8 % (4.0-6.0)
[2020-10-10 04:43] LABS: Acetaminophen Less than 6.0 mcg/mL (10.0-30.0); Alcohol Less than 10 mg/dL (Less than 10); Anion Gap 16 mmol/L (10-20); BUN (Urea Nitrogen) 49 mg/dL (8.4-25.7); CK (CPK) 1348 U/L (30-200); Calc. Creatinine Clearance 10 mL/min (70-130); Calcium 7.7 mg/dL (7.8-10.44); Carbon Dioxide 23 mmol/L (22-29); Chloride 99 mmol/L (98-107); Glucose 273 mg/dL (70-105); Lipase 91 U/L (8-78); Magnesium 1.9 mg/dL (1.6-2.6); Salicylate Less than 8.0 mg/dL (15.0-30.0); Sodium 134 mmol/L (136-145)
[2020-10-10 04:54] LABS: Phosphorus 1.7 mg/dL (2.3-4.7)
[2020-10-10 05:08] LABS: Troponin I 0.014 ng/mL (< 0.028)
[2020-10-10] MEDS ORDERED: HumaLOG 300 UNITS/3 ML VIAL ONE (07:55)
[2020-10-10] MEDS: HumaLOG 300 UNITS/3 ML VIAL SC PRN ×2 (07:58→18:25)
[2020-10-10 08:52] LABS: SARS-CoV-2 NAA Rapid Test Not Detected (NotDetected)
[2020-10-10] MEDS: Amlodipine 10 MG TAB PO SCH (10:00)
[2020-10-10] MEDS: Famotidine 20 MG TAB PO SCH (10:00)
[2020-10-10] MEDS: Lantus 1000 UNITS/10 ML VIAL SC SCH ×2 (10:02→20:47)
[2020-10-10] MEDS ORDERED: Famotidine 20 MG TAB ONE (10:05)
[2020-10-10 10:36] LABS: Bacteria/HPF None Seen HPF (None Seen); Bilirubin Negative (Negative); Blood, Urine 3+ (Negative); Clarity Clear (Clear); Glucose, Urine (Dipstick) Greater than 1000 mg/dL (Negative); Ketone, Urine Negative (Negative); Leukocyte Negative Leu/uL (Negative); Nitrite Negative (Negative); Protein, Urine (Dipstick) 70 mg/dL (Neg-Trace); RBC/HPF 0-3 HPF (0-3); Specific Gravity, Urine 1.012 (1.002-1.036); Squamous Epithelial None Seen HPF (0-3); Urobilinogen Normal mg/dL (Less than 2); WBC/HPF 0-3 HPF (0-3)
[2020-10-10 10:44] LABS: Amphetamine Not Detected (NotDetected); Barbiturates Screen Not Detected (NotDetected); Benzodiazepine Screen Not Detected (NotDetected); Cocaine Metabolite Screen Not Detected (NotDetected); Methadone Not Detected (NotDetected); Methamphetamine Not Detected (NotDetected); Opiate Screen Not Detected (NotDetected); Oxycodone Screen Not Detected (NotDetected); Phencyclidine (PCP) Not Detected (NotDetected); THC/Cannabinoid Screen Not Detected (NotDetected); Tricyclic Screen Not Detected (NotDetected)
[2020-10-10] MEDS: Famotidine/PF 20 mg/2ml Vial SLOW IVP SCH (11:57)
[2020-10-10] MEDS ORDERED: Epoetin (ESRD) 20,000 UNITS/ML SC SCH (13:00)
[2020-10-10 13:35] VITALS: BMI 32.1
[2020-10-10] MEDS ORDERED: EPOETIN ALFA-EPBX (ESRD) 4,000 UNIT/ML VIAL SC SCH (14:00)
[2020-10-10 17:22] LABS: Bacteria/HPF None Seen HPF (None Seen); Bilirubin Negative (Negative); Blood, Urine 2+ (Negative); Clarity Clear (Clear); Glucose, Urine (Dipstick) >=1000 mg/dL (Negative); Ketone, Urine Negative (Negative); Leukocyte Negative Leu/uL (Negative); Nitrite Negative (Negative); Protein, Urine (Dipstick) 50 mg/dL (Neg-Trace); RBC/HPF 0-3 HPF (0-3); Specific Gravity, Urine 1.006 (1.002-1.036); Squamous Epithelial None Seen HPF (0-3); Urobilinogen Normal mg/dL (Less than 2); WBC/HPF 0-3 HPF (0-3)
[2020-10-10 17:30] LABS: Amphetamine Not Detected (NotDetected); Barbiturates Screen Not Detected (NotDetected); Benzodiazepine Screen Not Detected (NotDetected); Cocaine Metabolite Screen Not Detected (NotDetected); Methadone Not Detected (NotDetected); Methamphetamine Not Detected (NotDetected); Opiate Screen Not Detected (NotDetected); Oxycodone Screen Not Detected (NotDetected); Phencyclidine (PCP) Not Detected (NotDetected); THC/Cannabinoid Screen Not Detected (NotDetected); Tricyclic Screen Not Detected (NotDetected)
[2020-10-11] MEDS: Famotidine/PF 20 mg/2ml Vial SLOW IVP SCH (11:31)
[2020-10-11 13:38] VITALS: BP 161/93; TEMP 99.1
[2020-10-11] MEDS: Famotidine 20 MG TAB PO SCH (13:43)
[2020-10-11] MEDS: Amlodipine 10 MG TAB PO SCH (13:43)
[2020-10-11] MEDS: Lantus 1000 UNITS/10 ML VIAL SC SCH (13:44)
== END 2020-10-11 16:25 | disposition home or self-care (01) | DRG 637 ==
LOC: ERS 20:04 → ERHOLD 23:00 → 2SE 10-10 13:13
PROVIDERS: ADMIT Internal Medicine; ATTEND Internal Medicine
PROC: 4A10X4Z Monitoring of Central Nervous Electrical Activity, External Approach (ICD-10-PCS; principal; 2020-10-10)
PROC: 5A1D70Z Performance of Urinary Filtration, Intermittent, Less than 6 Hours Per Day (ICD-10-PCS; 2020-10-11)
DX: E11.65 Type 2 diabetes mellitus with hyperglycemia (principal); N18.6 End stage renal disease; G93.41 Metabolic encephalopathy; I12.0 Hypertensive chronic kidney disease with stage 5 chronic kidney disease or end stage renal disease; G40.909 Epilepsy, unspecified, not intractable, without status epilepticus; E11.22 Type 2 diabetes mellitus with diabetic chronic kidney disease; E78.5 Hyperlipidemia, unspecified; Z96.653 Presence of artificial knee joint, bilateral; D63.1 Anemia in chronic kidney disease; E66.9 Obesity, unspecified; Z20.822 Contact with and (suspected) exposure to COVID-19; E86.0 Dehydration; Z91.14 Patient's other noncompliance with medication regimen; Z88.8 Allergy status to other drugs, medicaments and biological substances; Z79.4 Long term (current) use of insulin; Z79.899 Other long term (current) drug therapy; Z79.82 Long term (current) use of aspirin; Z99.2 Dependence on renal dialysis; Z68.32 Body mass index [BMI] 32.0-32.9, adult
CPT/HCPCS: 0240U; 36415; 36416; 70450; 70551; 71045; 80048; 80053; 80306; 80307; 81003; 81015; 82010; 82550; 82805; 83036; 83690; 83735; 84100; 84443; 84484; 85025; 93005; 93306; 93880; 95816; 95819; J1815; Q5105